=== PATIENT | male | born 1970 | race Caucasian/White ===

== ENCOUNTER → 2020-09-11 13:56 | Outpatient (CLI) | payer BC, SELFPAY | PROVIDERS: PCP Family Medicine; Visit Provider Family Medicine | DX: G47.33 Obstructive sleep apnea (adult) (pediatric) (principal); R06.83 Snoring | CPT/HCPCS: G0399 ==

== ENCOUNTER → 2022-10-31 08:01 | Outpatient (CLI) | payer BC, SELFPAY ==
--- NOTE | 2022-10-31 08:10 | XR_ITS ---
FINAL REPORT CLINICAL HISTORY: foot pain FINDINGS: Right foot Three views were obtained. There is no acute fracture or dislocation. There are mild degenerative changes of the 1st metatarsophalangeal joint. Small calcaneal spur is identified. No soft tissue abnormality is identified. IMPRESSION: Degenerative change of the 1st metatarsophalangeal joint. Reviewed, Interpreted and Dictated by Joseph Petersen III, MD Transcribed by Tamiko Arguello Authenticated and . [facility]
--- NOTE | 2022-10-31 08:10 | XR_ITS ---
FINAL REPORT CLINICAL HISTORY: foot pain FINDINGS: Left foot Three views were obtained. There is no acute fracture or dislocation. The joint spaces appear normal. No soft tissue abnormality is identified. There is a small plantar calcaneal spur. IMPRESSION: No acute process. Reviewed, Interpreted and Dictated by Joseph Petersen III, MD Transcribed by Tamiko Arguello Authenticated and [facility]
== END ==
PROVIDERS: PCP Family Medicine; Visit Provider Podiatrist
DX: M79.671 Pain in right foot (principal); M79.672 Pain in left foot
CPT/HCPCS: 73630

== ENCOUNTER 2025-01-26 10:33 | Day surgery (SDC) | payer BC, SELFPAY ==
[2025-01-26 10:39] VITALS: BMI 37.4
[2025-01-26 10:59] VITALS: BP 144/95; PULSE 85; RESP 16; TEMP 36.2; O2SAT 96
[2025-01-26] MEDS: LACTATED RINGERS 1000ML 1,000 ML 50 ML IV (11:03)
--- NOTE | 2025-01-26 11:39 | EXP.HP ---
History of Present Illness *Admission Date: 01/26/25 *Reason for visit:: Screening *History of present illness: Mr. Cassidy is a 53-year-old gentleman who is here for initial GI consultation. The patient was having epigastric abdominal pain, bloating, belching and reflux last summer. However, this has improved more recently. He does state that he began using gfrr-eab-dikoezj omeprazole last month and his symptoms have nearly resolved. He also reports bowel irregularity with constipation that alternates with diarrhea. He states that this began after beginning semaglutide a month ago. He states that this is starting to improve. He reports no rectal bleeding or weight loss. He reports no family history of colon cancer. His father more recently of a perforated gastric ulcer. The patient has had routine colonoscopies and his last colonoscopy was 5 to 6 years ago. He does state that he is uncertain where this was done. He does state that he was given 10-year surveillance interval. However, he does state that they have tried to reach him for repeat colonoscopy at 5 years. He does state that in his 30s, he had a colonoscopy and had polyps. He had a 5-year repeat that was normal. His last colonoscopy he does not think anything was present. [facility] Disclaimer: The information contained in this section may have been updated after the patient was seen, as this information can be updated by other users. Medical History Foot pain, bilateral Surgical History History of tonsillectomy Family History Other Diabetes Social History Smoking Status: Never smoker alcohol intake: current alcohol intake frequency: a few times a month substance use type: denies use current occupational status: employed Travel in the last 8 weeks?: None household members: spouse housing: house Have you lived/traveled outside [place] in past 30 days?: No Contact w/someone who lives/traveled outside [place] past 30 days?: No Exposure to someone with infectious disease in past 14 days?: No Do you have a fever (greater than 100.4 F or 38 C)?: No Have you tested positive for COVID-19?: No Exposed to someone with COVID-19 in past 14 days?: No Do you have a sore throat?: No Do you have a cough?: No Do you have any weakness?: No Do you have any diarrhea?: No Are you experiencing any unusual bleeding?: No Do you have any muscle aches/pain?: No Do you have any abdominal pain?: No Are you experiencing loss of taste or smell?: No Other Medical History Have you received the Pneumonia Vaccine: No Review of Systems Review of Systems Review of systems (narrative): Negative *Cardiovascular Comments: Negative *Gastrointestinal Comments: Negative *Genitourinary Comments: Negative *Musculoskeletal Comments: Negative *Neurologic Comments: Negative Meds Home Medications and Allergies Home Medications ?Medication ?Instructions ?Recorded ?Confirmed ?Type cholecalciferol (vitamin D3) 50 50 mcg PO DAILY 11/17/24 01/26/25 History mcg (2,000 unit) capsule glucosamine-chondroitin 250 mg-200 2 tab PO ONCE 11/17/24 01/26/25 History mg tablet (Osteo Bi-Flex) krill 500 mg-omega-3 110 mg-dha 28 1 cap PO DAILY 11/17/24 01/26/25 History mg-epa 60 ch-bgucyqz-fpqgp capsule omeprazole 20 mg capsule,delayed 20 mg PO DAILY 11/17/24 01/26/25 History release red yeast rice 600 mg capsule 600 mg PO DAILY 11/17/24 01/26/25 History semaglutide 2 mg/dose (8 mg/3 mL) 2 mg SQ WEEKLY 11/17/24 01/26/25 History subcutaneous pen injector New Prescriptions to Start Prescriptions: Allergies Allergy/AdvReac Type Severity Reaction Status Date / Time No Known Allergies Allergy Verified 11/17/24 08:33 Exam Data for Last 24 hours Vital signs and Labs for Last 24 Hours: Temp Pulse Resp BP Pulse Ox O2 Del Method 97.2 F L 85 16 144/95 H 96 Room Air 01/26/25 10:59 01/26/25 10:59 01/26/25 10:59 01/26/25 10:59 01/26/25 10:59 01/26/25 10:59 I & O for Last 24 hours: Intake & Output 01/23/25 01/24/25 01/25/25 01/26/25 23:59 23:59 23:59 23:59 Weight 261 lb *Routine HEENT Exam Head: Present normocephalic Eye: Present EOMI and PERRL ENT: Present mucous membranes moist *Routine Neck Exam Neck: Present supple *Routine Respiratory Exam Respiratory: Present CTA bilaterally *Routine Cardiovascular Exam Cardiovascular: Present RRR *Routine Abdominal Exam Abdominal: Present soft and normoactive bowel sounds; Absent tenderness *Routine Rectal Exam Rectal:: deferred *Routine Genitalia Exam Genitalia:: deferred *Routine Extremities Exam Extremities: Absent cyanosis, clubbing or edema *Routine Skin Exam Skin: Present warm; Absent rash *Routine Neurological Exam Neurological: Present alert and oriented X3 Assessment and Plan *Assessment and plan (1) Personal history of colon polyps, unspecified: Status: Acute Category: Medical Code(s): Z86.0100 - Personal history of colon polyps, unspecified (2) Screening for colon cancer: Status: Acute Category: Medical Code(s): Z12.11 - Encounter for screening for malignant neoplasm of colon Plan A/P: 1. Personal history of colon polyps (unspecified) and screening is the preprocedural diagnosis. The patient will be anesthetized/sedated using MAC sedation. The patient has been seen and examined. Cardiac and lung assessment prior to the examination is stable. Proceed with planned screening colonoscopy.
--- NOTE | 2025-01-26 11:45 | EXP.ANES.CKL ---
[facility] Disclaimer: The information contained in this section may have been updated after the patient was seen, as this information can be updated by other users. Medical History Foot pain, bilateral Surgical History History of tonsillectomy Family History Other Diabetes Social History Smoking Status: Never smoker alcohol intake: current alcohol intake frequency: a few times a month substance use type: denies use current occupational status: employed Travel in the last 8 weeks?: None household members: spouse housing: house Have you lived/traveled outside [place] in past 30 days?: No Contact w/someone who lives/traveled outside [place] past 30 days?: No Exposure to someone with infectious disease in past 14 days?: No Do you have a fever (greater than 100.4 F or 38 C)?: No Have you tested positive for COVID-19?: No Exposed to someone with COVID-19 in past 14 days?: No Do you have a sore throat?: No Do you have a cough?: No Do you have any weakness?: No Do you have any diarrhea?: No Are you experiencing any unusual bleeding?: No Do you have any muscle aches/pain?: No Do you have any abdominal pain?: No Are you experiencing loss of taste or smell?: No [facility] Anesthesia Checklist Patient Identification Patient Identification: Arm Band and Verbal (Name & ) Structural Data Admitted From: Home Planned Operative Procedure/s: colonscopy Consent for Planned Operative Procedure(s) Verified: Yes Verified Documents: Surgical Consent and History and Physical NPO Status Verified Time NPO: 00:00 Additional verifications Anesthesia Reactions: No Airway Assessment Mallampati Score:: Class II Dentition: Good Dentition Neurological Assessment Level of Consciousness: Awake, Alert and Appropriate Anesthesia Plan Anesthesia Risk discussed: Yes Anesthesia Plan: Verified ASA Class: II Anesthesia Type: MAC
--- NOTE | 2025-01-26 11:56 | P.PCN_ITS ---
[facility] Procedure Note Date: 01/26/25 Time: 12:12 Procedure Note:: Colonoscopy Procedure Report: Colonoscopy with cold snare polypectomy Endoscopist: Pranav Sharif II, MD Referring physician: Saji Herman MD Date of Procedure: January 26, 2025 Equipment: Olympus 190 variable stiffness pediatric colonoscope Sedation: MAC sedation Indication: Mr. Cassidy is a 54-year-old gentleman who is here for follow-up surveillance/screening colonoscopy. The patient reports no abdominal pain, weight loss, change in bowel habits or family history of colon cancer. He reports no rectal bleeding. His father more recently of a perforated gastric ulcer. The patient has had routine colonoscopies and his last colonoscopy was 5 to 6 years ago. He does state that he is uncertain where this was done. He does state that they have tried to reach him for repeat colonoscopy at 5 years. He does state that in his 30s, he had a colonoscopy and had polyps. He had a 5-year repeat that was normal. His last colonoscopy he does not think anything was present. Procedure: Prior to the procedure, a history and physical exam was performed, and patient's medications and allergies were reviewed. The risks, benefits and alternatives of the sedation and procedure were discussed with the patient. All questions were answered and informed consent was obtained. The patient was brought to the procedure room. Patient identification and proposed procedure were verified by the physician and the nurse. The patient was placed in a left lateral decubitus position and the scope was passed under direct vision. Throughout the procedure, the patient's blood pressure, pulse, and oxygen saturations were monitored continuously. The colonoscopy was accomplished without difficulty. The patient tolerated the procedure well. Findings: On digital rectal examination there was normal rectal tone. There were no external hemorrhoids. The colonoscope was introduced through the anal canal to the rectum and advanced to the cecum. The ileocecal valve and appendiceal orifice were identified. The scope was advanced a short distance into the ileum which appeared grossly normal. The scope was then withdrawn into the colon. There was a single 3 mm polyp in the sigmoid colon removed via cold snare po lypectomy. The remaining cecum, ascending, transverse, descending, sigmoid and rectum were grossly normal. There were no other mucosal abnormalities identified. Upon retroflexion within the rectum there were grade 1-2 internal hemorrhoids. The preparation was excellent throughout with [place] Preparation Score of 9. The cecal time was 11 minutes. Impression: 1. Diminutive 3 mm sigmoid colon polyp Plan: I will follow-up the polyp histology and if this is a hyperplastic polyp, he will not require surveillance colonoscopy again for 10 years.
[2025-01-26 12:20] VITALS: BP 96/50; PULSE 65; RESP 17; TEMP 36.2; O2SAT 95
[2025-01-26 12:30] VITALS: BP 130/59; PULSE 70; RESP 18; O2SAT 94
[2025-01-26 12:40] VITALS: BP 109/71; PULSE 59; RESP 18; O2SAT 97
[2025-01-26 12:50] VITALS: BP 121/73; PULSE 56; RESP 18; O2SAT 98
--- NOTE | 2025-01-26 13:29 | P.PNANES_ITS ---
[facility] Disclaimer: The information contained in this section may have been updated after the patient was seen, as this information can be updated by other users. Medical History Foot pain, bilateral Surgical History History of tonsillectomy Family History Other Diabetes Social History Smoking Status: Never smoker alcohol intake: current alcohol intake frequency: a few times a month substance use type: denies use current occupational status: employed Travel in the last 8 weeks?: None household members: spouse housing: house Have you lived/traveled outside [place] in past 30 days?: No Contact w/someone who lives/traveled outside [place] past 30 days?: No Exposure to someone with infectious disease in past 14 days?: No Do you have a fever (greater than 100.4 F or 38 C)?: No Have you tested positive for COVID-19?: No Exposed to someone with COVID-19 in past 14 days?: No Do you have a sore throat?: No Do you have a cough?: No Do you have any weakness?: No Do you have any diarrhea?: No Are you experiencing any unusual bleeding?: No Do you have any muscle aches/pain?: No Do you have any abdominal pain?: No Are you experiencing loss of taste or smell?: No [facility] Anesthesia Checklist Patient Identification Patient Identification: Verbal (Name & ) Structural Data Admitted From: Home Planned Operative Procedure/s: colonoscopy Consent for Planned Operative Procedure(s) Verified: Yes NPO Status Verified Time NPO: 00:00 Additional verifications Anesthesia Reactions: No Airway Assessment Mallampati Score:: Class II C-Spine Mobility Assessed: Yes TMJ Mobility Assessed: Yes Dentition: Good Dentition Neurological Assessment Level of Consciousness: Awake, Alert and Appropriate Anesthesia Plan Anesthesia Risk discussed: Yes Anesthesia Plan: Verified ASA Class: II Anesthesia Type: MAC
== END 2025-01-26 13:00 | disposition home or self-care (01) ==
PROVIDERS: PCP Family Medicine; Visit Provider Internal Medicine Gastroenterology
PROC: 0DJD8ZZ Inspection of Lower Intestinal Tract, Via Natural or Artificial Opening Endoscopic (ICD-10-PCS; CPT 45378; principal; 2025-01-26 12:00)
DX: Z12.11 Encounter for screening for malignant neoplasm of colon (principal); K63.5 Polyp of colon; Z86.0100 Personal history of colon polyps, unspecified; Z83.79 Family history of other diseases of the digestive system; Z79.899 Other long term (current) drug therapy; Z79.85 Long-term (current) use of injectable non-insulin antidiabetic drugs
CPT/HCPCS: 45385; J2003; J2704; J7120